=== PATIENT | male | born 1965 | race Caucasian/White ===

== ENCOUNTER 2024-05-27 17:21 | Inpatient (IN) | payer SELFPAY ==
[2024-05-27] VITALS (20 sets, daily range): BP systolic 101–196; BP diastolic 67–99; PULSE 74–109; RESP 12–23; TEMP 36.7–36.8; O2SAT 95–99; BMI 33.5
--- NOTE | ~2024-05-27 | XR_ITS ---
EXAMINATION: XR chest 1V portable Exam Date/Time: 05/27/2024 20:45 CDT HISTORY: chest pain Comparison: 04/21/2012. RESULT: Lines, tubes, and devices: None. Lungs and pleura: Clear. Cardiomediastinal silhouette: Stable. Other: No acute osseous or upper abdominal finding. IMPRESSION: No acute cardiopulmonary process. Reviewed, dictated and finalized at location K.
--- NOTE | 2024-05-27 17:22 | ECG_ITS ---
Test Date: 2024-05-27 17:29:51 Measurements Intervals [place] Rate: 107 P: 34 DC: 142 QRS: -5 QRSD: 79 T: 56 QT: 311 QTc: 416 Interpretive Statements SINUS TACHYCARDIA MARKED ST ELEVATION, CONSIDER ANTERIOR INJURY [MARKED ST ELEVATION W/O NORMALLY INFLECTED T WAVE IN V2-V5] ACUTE [place] No previous ECG available for comparison Electronically Signed On 05-27-2024 21:08:00 CDT by Lauren Paez M.D.
--- NOTE | 2024-05-27 17:43 | ECG_ITS ---
Test Date: 2024-05-27 17:45:25 Measurements Intervals [place] Rate: 107 P: 36 [place]: 142 QRS: -9 QRSD: 72 T: 41 QT: 306 QTc: 409 Interpretive Statements SINUS TACHYCARDIA LEFT VENTRICULAR HYPERTROPHY AND ST-T CHANGE [VOLTAGE CRITERIA PLUS ST/T ABNORMALITY] ST ELEVATION ANTERIOR LEADS, ACUTE [place] Electronically Signed On 05-27-2024 21:08:35 CDT by Lauren Paez M.D.
--- NOTE | 2024-05-27 17:45 | PC.NURSE ---
25mg PO metoprolol given verbal order 5000units Heparin given verbal order 4mg zofran given per verbal order from Dr Davidson
--- NOTE | 2024-05-27 17:46 | ED.CHESTPAIN ---
HPI - Chest Pain General Chief Complaint: Chest Pain Stated Complaint: left chest pain Time Seen by Provider: 05/27/24 17:32 Source: patient and RN notes reviewed Mode of arrival: ambulatory Limitations: no limitations History of Present Illness HPI narrative: This is a 58 year old male with strong family history of heart disease who presents for evaluation of left chest pain . He states his pain start around 11 am today. He states his pain has been constant. His pain is located to left anterior chest and radiates to left back and axilla. He reports mild nausea. He is unsure if pain is muscular because shlomo abarca was recently moving boxes. He took 2 full strength aspirin around 3 pm today. He rates his pain as 4/10. Denies history of heart disease. He does not go to doctor regularly. MD complaint: chest pain Onset (ago): hour(s) (5) Timing of current episode: constant Related Data Home Medications Medication Instructions Recorded Confirmed loratadine 10 mg tablet (Claritin) 10 mg PO DAILY 05/27/24 05/27/24 Allergies Allergy/AdvReac Type Severity Reaction Status Date / Time No Known Allergies Allergy Verified 05/27/24 17:23 Review of Systems Constitutional: Constitutional: Denies weakness Cardiovascular: Cardiovascular: Reports chest pain, Denies syncope, Denies rapid heart rate, Denies irregular heart rhythm, Denies leg edema, Reports radiating jaw, neck or arm pain and Denies dyspnea Respiratory: Respiratory: Denies chest congestion, Denies hemoptysis, Denies excessive phlegm production and Denies dyspnea Gastrointestinal: Gastrointestinal: Denies abdominal pain, Denies hematochezia, Denies diarrhea and Denies vomiting Genitourinary: Genitourinary: Denies hematuria, Denies dysuria, Denies penile discharge and Denies testicular pain Musculoskeletal: Musculoskeletal: Denies joint swelling, Denies loss of height and Denies muscle weakness Neurologic: Denies syncope, Denies focal weakness and Denies weakness [facility] Past Medical History Medical History (Updated 05/27/24 @ 22:01 by Hallie Davidson MD) History of ST elevation myocardial infarction (STEMI) (05/2024) Family History Family History (Updated 05/27/24 @ 20:41 by Mayuri Hameed RN) Father Acute myocardial infarction Lung cancer Mother Diabetes mellitus Heart abnormality Social History Social History Smoking status: Never smoker Second hand tobacco smoke exposure: Yes Alcohol intake: never Substance use: never Do You Feel Safe in your Home?: Yes Lack of Transportation: No Lack of Food: Never True Current Housing: I Have Housing Concerned About Future Housing: No Difficulty Paying Gas/Electric Bills: No Difficulty Paying for Meds: No 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ion: Bachelor's Degree Difficulty w/ Childcare or Family Care: No Spiritual care concerns: No Exam Const: General: no acute distress and alert Nutritional Appearance: well nourished Orientation/consciousness: patient oriented x3 Eyes: EOM: EOMs intact bilaterally Chest: Chest palpation & inspection: normal inspection of the chest Resp: Effort & Inspection: normal respiratory effort Auscultation: clear to auscultation bilaterally Cardio: Rate: tachycardic Rhythm: regular rhythm GI: GI Palp: Yes Soft to palpation, No Tenderness to palpation present (GI), No Guarding due to palpation present (GI), No Rigid due to palpation, No Hernia present, No Palpable mass present and No Rebound tenderness present Skin: General skin exam: normal color Neuro: General: patient oriented x3 and moves all extremities Cranial nerves: Yes Nystagmus not present Speech: normal speech Extrem: General: normal to inspection Psych: Mental Status: mental status grossly normal Affect: normal affect Attitude: cooperative Course Reevaluation(s) Reevaluation #1: Patient has at bedside. I have discuss
[2024-05-27 17:48] LABS: Basophils Percent Auto 0.2 % (0.2-1.2); Eosinophils Absolute Auto 0.1 K/mm3 (0-0.3); Hematocrit 44.4 % (42.0-52.0); Hemoglobin 15.2 g/dL (14.0-18.0); Immature Granulocyte Absolute 0.02 K/mm3 (0.00-0.031); Immature Granulocyte Percent A 0.2 % (0-0.5); Lymphocytes Absolute Auto 2.14 K/mm3 (0.9-3.2); Mean Corpuscular HGB Conc 34.2 g/dl (32-36); Mean Corpuscular Hemoglobin 30.3 pg (26-34); Mean Corpuscular Volume 88.6 fl (80-100); Mean Platelet Volume 9.2 fl (7.4-10.4); Monocytes Absolute Auto 0.5 K/mm3 (0.1-0.6); Neutrophils Absolute Auto 6.2 K/mm3 (1.3-6.7); Neutrophils Percent Auto 69.6 % (45.5-73.1); Platelet Count Result 415 k/mm3 (150-375); Red Blood Count 5.01 M/mm3 (4.6-6.20); Red Cell Distribution Width 12.9 % (11.5-14.5); White Blood Count 8.9 K/mm3 (4.5-10.0)
--- NOTE | 2024-05-27 17:52 | PC.NURSE ---
1in of nitro paste placed on patient left chest per verbal order from Dr Davidson
[2024-05-27 17:59] LABS: INR 0.9; Prothrombin Time 12.9 Seconds (11.1-14.7)
[2024-05-27 18:00] LABS: Anion Gap 12 mmol/L (4-12); Blood Urea Nitrogen 16 mg/dL (9-20); Carbon Dioxide 28 mmol/L (22-30); Chloride 96 mmol/L (98-107); Estimated CRCL calculation 113 ml/min; Estimated Glomerular Filt Rate > 60; Partial Thromboplastin Time 24.5 Seconds (22.3-36.8); Potassium 4.4 mmol/L (3.4-5.0); Sodium 136 mmol/L (137-145)
[2024-05-27 18:01] LABS: Alanine Aminotransferase 45 U/L (6-50); Albumin Level 4.9 g/dL (3.5-5.1); Alkaline Phosphatase 61 U/L (38-126); Aspartate Amino Transferase 55 U/L (17-59); Bilirubin,Total 0.7 mg/dL (0.2-1.3); Glucose 321 mg/dL (65-110); Lipase 44 U/L (23-300)
--- NOTE | 2024-05-27 18:07 | PC.NURSE ---
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
[2024-05-27 18:13] LABS: Troponin I 0.252 ng/mL (0.000-0.034)
--- NOTE | 2024-05-27 18:17 | PM.IMHP ---
H&P: HPI History of Present Illness Date/Time: Date of eczqall44/06/24 18:17 Chief Complaint: chest pain Narrative: 58-year-old male no past history does not take any medicine at home started at 11 having left chest pain that is intermittent radiating to the left arm and upper back. Denies shortness of breath dizziness or syncope. Does not smoke or drink alcohol. Admits to strong family history of CAD. EKG shows anterior STEMI. Review of Systems Review of Systems: All systems reviewed & are unremarkable except as noted in HPI and below Constitutional: Constitutional: Denies chills, Denies fatigue, Denies fever(s), Denies headache(s) and Denies snoring Eyes: Eyes: Denies eye discharge and Denies loss of vision ENT: Denies dizziness, Denies headache(s), Denies nasal discharge and Denies sore throat Cardiovascular: Cardiovascular: Reports as per HPI, Reports chest pain, Denies syncope, Denies rapid heart rate, Denies leg edema, Denies dyspnea, Denies dyspnea on exertion, Denies orthopnea and Denies paroxysmal nocturnal dyspnea Respiratory: Respiratory: Denies chest congestion, Denies cough, Denies dyspnea, Denies dyspnea on exertion, Denies snoring and Denies wheezing Gastrointestinal: Gastrointestinal: Denies abdominal pain, Denies diarrhea, Denies nausea and Denies vomiting Genitourinary: Genitourinary: Denies hematuria, Denies dysuria, Denies flank pain and Denies urinary frequency Musculoskeletal: Musculoskeletal: Denies myalgias, Denies arthralgias and Denies joint swelling Neurologic: Denies Abnormal speech present, Denies dizziness, Denies syncope, Denies headache(s), Denies focal weakness and Denies loss of vision Psychiatric: Psychiatric: Denies anxiety and Denies depression Endocrine: Endocrine: Denies cold intolerance, Denies fatigue and Denies heat intolerance Hematologic/Lymphatic: Hematologic/Lymphatic: Denies easy bleeding and Denies easy bruising Allergic/Immunologic: Allergic/Immunologic: Denies urticaria and Denies wheezing PMFSH Family History Family History Father Acute myocardial infarction Lung cancer Mother Diabetes mellitus Social History Social History Smoking status: Never smoker Meds Home Medications and Allergies Home Medications Medication Instructions Recorded Confirmed Type No Home Medications 10/13/22 10/19/22 History Allergies Allergy/AdvReac Type Severity Reaction Status Date / Time No Known Allergies Allergy Verified 05/27/24 17:23 Vital Signs Vital Signs - 24 hr 05/27/24 17:23 05/27/24 17:46 05/27/24 17:50 Temperature 36.7 C Pulse Rate 104 H 109 H Respiratory Rate 18 20 Blood Pressure 196/99 H 171/99 H Pulse Oximetry 99 97 99 Oxygen Delivery Room Air Exam Const: General: cooperative, healthy appearing, comfortable, no acute distress, well developed and well nourished Nutritional Appearance: well nourished Orientation/consciousness: patient oriented x3 HENMT: Head: normal to inspection, normocephalic and atraumatic Ears: hearing grossly normal bilaterally and external ears normal Face/Nose/Sinus: Normal external nose present, Normal nares present, normal facial exam and No erythema Face and sinus: normal facial exam and no erythema Mouth: Yes moist mucous membranes and No lip abnormal Throat: uvula midline Eyes: General: appearance normal, both eyes and all related structures Eyelids: eyelids normal Sclera: sclerae normal Neck: Neck: normal visual inspection and full ROM Thyroid: thyroid normal Carotids: no bruits Lymphatic: lymphedema not noted Chest: Chest palpation & inspection: normal inspection of the chest and normal palpation of entire chest wall Resp: Effort & Inspection: normal respiratory effort and not labored Auscultation: clear to auscultation bilaterally, no crackles, no rales and no wheezes Cardio:
--- NOTE | 2024-05-27 18:19 | WPDMODSED ---
Moderate Sedation Note-Pt Data Patient Data Diagnosis: STEMI Present Complaint: chest pain Procedure to be performed/Plan: coronary angiogram with stenting Allergies Allergy/AdvReac Type Severity Reaction Status Date / Time No Known Allergies Allergy Verified 05/27/24 17:23 Home Medications Medication Instructions Recorded Confirmed Type No Home Medications 10/13/22 10/19/22 History Sedation/Anesthesia: No previous sedation/anesthesia problems (including family history). PENDING SALE TO [facility] Family History Family History Father Acute myocardial infarction Lung cancer Mother Diabetes mellitus Social History Social History Smoking status: Never smoker Mod Sed Physical Exam Physical Exam Pre Procedural Exam: Normal: Appearance, Eyes, Ears, Nose, Neck, Throat, Airway, Lungs, Heart Size, Heart Rate, Heart Rhythm, Neuro Exam, Abdomen, Liver, Kidneys, Spleen, Breasts, Genitalia, Extremities and Skin Hours since solid foods: 8 Hours since liquid intake: 8 Mallampati Classification: class 1 Internal Medicine - PN: Obj Da Vital Signs Vital Signs: Vital Signs - 24 hr 05/27/24 17:23 05/27/24 17:46 05/27/24 17:50 Temperature 36.7 C Pulse Rate 104 H 109 H Respiratory Rate 18 20 Blood Pressure 196/99 H 171/99 H Pulse Oximetry 99 97 99 Oxygen Delivery Room Air Labs 05/27/24 17:42 05/27/24 17:42 Labs: Laboratory Results - last 24 hr 05/27/24 17:42 WBC 8.9 RBC 5.01 Hgb 15.2 Hct 44.4 MCV 88.6 MCH 30.3 MCHC 34.2 RDW 12.9 Plt Count 415 H MPV 9.2 Immature Gran % (Auto) 0.2 Neut % (Auto) 69.6 Lymph % (Auto) 24.0 [place] % (Auto) 5.0 Eos % (Auto) 1.0 Baso % (Auto) 0.2 Lymph # (Auto) 2.14 [place] # (Auto) 0.5 Eos # (Auto) 0.1 Baso # (Auto) 0.0 Abs Immat Gran (auto) 0.02 Absolute Neuts (auto) 6.2 Absolute Nucleated RBC 0.000 Nucleated RBC % 0.0 PT 12.9 INR 0.9 APTT 24.5 Sodium 136 L Potassium 4.4 Chloride 96 L Carbon Dioxide 28 Anion Gap 12 BUN 16 Creatinine 0.70 Estim Creat Clear Calc 113 Estimated GFR > 60 Glucose 321 H Calcium 10.0 Total Bilirubin 0.7 AST 55 ALT 45 Alkaline Phosphatase 61 Troponin I 0.252 H* Total Protein 9.0 H Albumin 4.9 Lipase 44 ASA Classification/Sedation ASA Classification/Sedation ASA Class: I Emergent: No Risks: Risks, benefits and alternatives explained and patient/family accepted plan for sedation. Patient re-evaluated immediately prior to sedation.
--- NOTE | 2024-05-27 18:19 | WPDCARDPROC ---
Cardiac Cath Procedure Note Date of procedure:: 05/27/24 Performing physician:: Lauren Paez MD Indication:: anterior STEMI Brief clinical history:: 58-year-old male no past history does not take any medicine at home started at 11 having left chest pain that is intermittent radiating to the left arm and upper back. Denies shortness of breath dizziness or syncope. Does not smoke or drink alcohol. Admits to strong family history of CAD. EKG shows anterior STEMI. Procedure Procedure performed:: 1-Moderate sedation that started at 6:25 p.m.and ended at 7:22 p.m. total duration 57 minutes using 2mg of Versed and 50mcg fentanyl. The registered nurse was penny kaba 2-Selective left and right coronary angiogram. 3-Left heart catheterization with measurement of LVEDP and measurement of gradient across aortic valve. 4-Right common femoral arterial angiogram. 5- intravascular ultrasound of the LAD. 6- Deployment of a drug-eluting stent cameron 4 x 34 covering proximal LAD. Sedation/Medication given:: Moderate sedation. Access site:: Right common femoral artery. Estimated blood loss:: 10cc Procedure note:: After informed consent patient was brought in to [facility] with the was draped and prepped in usual manner. Moderate sedation was given and the right groin was infiltrated using 1% lidocaine. 6 Hungarian sheath was obtained using micropuncture needle and the modified Seldinger technique. Selective left coronary angiogram was done using CLS 3.5 guide catheter with the tip of the catheter placed in the left main coronary artery. after that coronary luge wire was advanced across the lesion. Balloon angioplasty was done using 3 x 20 balloon under nominal pressure for 10 seconds. Intravascular ultrasound was done. After that a balloon 3.5 x 20 was used under normal pressure for 20 seconds. Then we advanced cameron 4 x 30 turned out to be short therefore we took longer stent cameron 4 x 34 and deployed at covering proximal LAD under normal pressure for 33 seconds. Post dilatation using noncompliant balloon 4 x 12. distal inflation under nominal pressure for 20 seconds and mid and proximal inflation under 16 atmospheres for 20 seconds each time. Selective right coronary angiogram was done using JR4 catheter with the tip of the catheter placed to the right coronary artery. After that 5 Hungarian pigtail catheter was advanced across the aortic valve into the left ventricle with measurement of LVEDP and measurement of gradient across aortic valve. Right common femoral arterial angiogram was done. Findings:: 1- left coronary artery is a large artery that divides into large LAD, Small left circumflex artery and large ramus. Main has minimal irregularities. 2- left anterior descending artery is a large artery And totally occluded at the junction of the proximal to mid segment. CHARLEEN flow was 0 before intervention and 3 intervention. 3- leftcircumflex artery is Small artery With minimal irregularities. 4- ramus intermedius is a large artery with minimal irregularities. 4- right coronary artery is Large and dominant with minimal irregularities . 5- LVEDP was 15 mm Hg and no gradient across aortic valve. 6- opening arterial pressure was 165/93 and closing pressure was 135/75 7- right femoral artery angiogram shows no significant disease in the right common femoral artery. 8- intravascular ultrasound shows the diameter was 4 mm. Assessment and Plan Assessment and plan (1) STEMI (ST elevation myocardial infarction): Code(s): I21.3 - ST elevation (STEMI) myocardial infarction of unspecified site Status: Acute Plan - Continue aspirin and Brilinta. - obtain echocardiogram. - check lipid panel and hemoglobin A1c. - high-intensity statin
--- NOTE | 2024-05-27 19:38 | ECG_ITS ---
Test Date: 2024-05-27 20:09:27 Measurements Intervals [place] Rate: 80 P: 45 [place]: 150 QRS: 7 QRSD: 94 T: 113 QT: 376 QTc: 434 Interpretive Statements SINUS RHYTHM WITH MARKED SINUS ARRHYTHMIA ANTEROSEPTAL MYOCARDIAL INFARCTION [40+ ms Q WAVE IN V1-V4], PROBABLY RECENT ACUTE NE Compared to ECG 05/27/2024 17:45:25 Sinus tachycardia no longer present Left ventricular hypertrophy no longer present ST (T wave) deviation IMPROVED Electronically Signed On 05-27-2024 21:14:40 CDT by Lauren Paez M.D.
[2024-05-27] MEDS: SODIUM CHLORIDE 0.9% IV 1,000 ML 100 ML IV CONT (20:18)
--- NOTE | 2024-05-27 20:21 | ADMGEN ---
This patient, Yuri Cavanaugh, was admitted to Intensive Care Unit-5. Patient/family oriented to hospital policies and general routines including ID bracelet, bed and alarms, visiting hours, pain management, procedures, bathroom and other care routines, personal items, smoking policy, room service/diet, and visiting hours. This RN recieved report from Ginna LIANG at 1936 Information on how to activate the Rapid Response Team has been discussed. Patient/Family are encouraged to report perceived risks to care and to ask questions if they do not understand what they are told or what they should do.
[2024-05-27 21:19] LABS: Hemoglobin A1C 10.2 % (<5.7)
[2024-05-27 21:22] LABS: Cholesterol 226 mg/dL (0-200); HDL Direct 36 mg/dL; Partial Thromboplastin Time 47.3 Seconds (22.3-36.8); Triglycerides 348 mg/dL (<150)
[2024-05-27 21:33] LABS: LDL Cholesterol Direct 111 mg/dL
--- NOTE | 2024-05-27 21:37 | PC.NURSE ---
Patient given heparin bolus in ED. Patient PTT 47.3 at 2106. Per protocol, will not pull sheath at this time. Repeat PTT ordered for 2206.
[2024-05-27 22:25] LABS: MRSA (PCR) NOT DETECTED (NOT DETECTE)
[2024-05-27 22:41] LABS: Partial Thromboplastin Time 38.4 Seconds (22.3-36.8)
[2024-05-28] VITALS (25 sets, daily range): BP systolic 111–131; BP diastolic 63–86; PULSE 79–105; RESP 12–21; TEMP 36.7–37.1; O2SAT 94–99; BMI 33.2
[2024-05-28] MEDS: MORPHINE SULFATE (*CRX) 2 MG/ML INJ IV PUSH (04:22)
[2024-05-28 04:54] LABS: Basophils Percent Auto 0.3 % (0.2-1.2); Eosinophils Absolute Auto 0.1 K/mm3 (0-0.3); Eosinophils Percent Auto 0.5 % (0-4.4); Hematocrit 39.1 % (42.0-52.0); Hemoglobin 13.2 g/dL (14.0-18.0); Immature Granulocyte Absolute 0.04 K/mm3 (0.00-0.031); Immature Granulocyte Percent A 0.3 % (0-0.5); Lymphocytes Absolute Auto 2.36 K/mm3 (0.9-3.2); Lymphocytes Percent Auto 18.9 % (18.3-44.2); Mean Corpuscular HGB Conc 33.8 g/dl (32-36); Mean Corpuscular Hemoglobin 30.1 pg (26-34); Mean Corpuscular Volume 89.1 fl (80-100); Mean Platelet Volume 9.2 fl (7.4-10.4); Monocytes Absolute Auto 0.8 K/mm3 (0.1-0.6); Monocytes Percent Auto 6.6 % (2.6-8.5); Neutrophils Absolute Auto 9.2 K/mm3 (1.3-6.7); Neutrophils Percent Auto 73.4 % (45.5-73.1); Platelet Count Result 347 k/mm3 (150-375); Red Blood Count 4.39 M/mm3 (4.6-6.20); Red Cell Distribution Width 12.9 % (11.5-14.5); White Blood Count 12.5 K/mm3 (4.5-10.0)
[2024-05-28 05:08] LABS: Anion Gap 7 mmol/L (4-12); Blood Urea Nitrogen 15 mg/dL (9-20); Calcium 9.3 mg/dL (8.4-10.2); Carbon Dioxide 26 mmol/L (22-30); Chloride 101 mmol/L (98-107); Estimated CRCL calculation 154 ml/min; Estimated Glomerular Filt Rate > 60; Glucose 206 mg/dL (65-110); Potassium 4.3 mmol/L (3.4-5.0); Sodium 134 mmol/L (137-145)
[2024-05-28 08:18] LABS: Glucose Point of Care 245 mg/dl (65-105)
[2024-05-28] MEDS: ASPIRIN 81 MG ENTERIC TABLET PO (08:18)
[2024-05-28] MEDS: TICAGRELOR 90 MG TABLET PO ×2 (08:18→20:54)
[2024-05-28] MEDS: ATORVASTATIN 40 MG TABLET PO (08:19)
[2024-05-28] MEDS: carvediloL 3.125 MG TABLET PO ×2 (08:19→20:54)
[2024-05-28] MEDS: ACETAMINOPHEN 325 MG TABLET 650 MG PO (08:19)
[2024-05-28] MEDS: LOSARTAN POTASSIUM 25 MG TABLET PO (08:19)
[2024-05-28] MEDS: INSULIN ASPART (*BKC) 100 UNITS/ML SUB-Q ×4 (08:20→21:03)
--- NOTE | 2024-05-28 08:31 | WPDCNINT ---
Assessment and Plan Assessment and plan (1) STEMI (ST elevation myocardial infarction): Code(s): I21.3 - ST elevation (STEMI) myocardial infarction of unspecified site Status: Acute Assessment and Plan: Continue STEMI status post stent placement in LAD Check echocardiogram Continue aspirin Brilinta Lipitor Coreg losartan Telemetry monitoring (2) Diabetes mellitus: Code(s): E11.9 - Type 2 diabetes mellitus without complications Status: Acute Assessment and Plan: Patient has elevated blood sugar levels and HbA1c is 10.2 suggestive of diabetes Patient was informed of these results Consult clinical educator and dietitian Start sliding scale insulin Cardiology plans to consult internal medicine for recommendation on management as an outpatient for diabetes (3) Essential hypertension: Code(s): I10 - Essential (primary) hypertension Status: Acute Assessment and Plan: Patient has been started on Coreg and losartan (4) Hyperlipidemia: Code(s): E78.5 - Hyperlipidemia, unspecified Status: Acute Assessment and Plan: Patient has been started on Lipitor Plan DVT prophylaxis -SCDs. I anticipate patient will ambulate today Nutrition -cardiac and diabetic diet Code Status - Full Code Transfer out of ICU today Software Quality Specialist Consult Note Consult date: 05/28/24 Reason for consult: STEMI HPI: Yuri Cavanaugh is a 58 year old male be with past medical history of sinus issues who has not seen a physician in 10 years presented to ER yesterday with chief complaint of pain on the left side of the chest. Pain started after eating lunch around 11:00 a.m.. Pain was constant sharp and radiated to his back pain was 10 out 10. No further aggravating or relieving factors. Initially thought he had some muscular pain but when it did not improved he got concerned and came to the hospital. Pain was associated with nausea and some shortness of breath. No vomiting dizziness lightheadedness or palpitations. All other systems were reviewed and were negative In ER patient's diagnosis STEMI and Cardiology consulted. Patient underwent PCI and a stent was placed in LAD. Patient was admitted to ICU for further evaluation management. Additional workup showed elevated blood pressure, elevated HbA1c and lipid level Patient this morning states he feels much better and he complains of E in left side of anterior chest which she rates at 2/10 but states it is different than the pain he presented with which has resolved. Pain is not necessary movement coughing of breathing. Denies any nausea vomiting shortness of breath lightheadedness dizziness palpitations. All other systems were reviewed and were negative. Review of Systems Review of Systems: All systems reviewed & are unremarkable except as noted in HPI and below (HPI) [facility] Past Medical History Medical History History of ST elevation myocardial infarction (STEMI) (05/2024) Family History Family History Father Acute myocardial infarction Lung cancer Mother Diabetes mellitus Heart abnormality Social History Social History Smoking status: Never smoker Second hand tobacco smoke exposure: Yes Alcohol intake: never Substance use: never Do You Feel Safe in your Home?: Yes Lack of Transportation: No Lack of Food: Never True Current Housing: I Have Housing Concerned About Future Housing: No Difficulty Paying Gas/Electric Bills: No Difficulty Paying for Meds: No 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ion: Bachelor's Degree Difficulty w/ Childcare or Family Care: No Spiritual care concerns: No Meds Home Medications and Allergies Home Medications Medication Instructions Recorded Confirmed Type loratadine 10 mg tablet (Claritin) 10 mg PO DAILY 05/27/
--- NOTE | 2024-05-28 08:39 | PM.PNCARD ---
Progress Note: A&P Assessment and Plan (1) STEMI (ST elevation myocardial infarction): Code(s): I21.3 - ST elevation (STEMI) myocardial infarction of unspecified site Status: Acute (2) Presence of stent in LAD coronary artery: Onset Date: 05/2024 Code(s): Z95.5 - Presence of coronary angioplasty implant and graft Status: Acute Plan 58-year-old man presenting for the 1st time with coronary artery disease with acute anterior ST-elevation WI. 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 His presentation was somewhat delayed therefore he will likely have a significant infarction. He also has newly diagnosed diabetes. Patient does not have regular medical attention by his PCP. Dual anti-platelet therapy, statin ARB and beta-pedro have been started appropriately and will be continued he. He can moved IMU today. Nas Harvey MD [facility] Subjective Date/time seen: Date of service: 05/28/24 08:39 Interval history: Follow-up visit in this 58-year-old man with: Coronary artery disease presenting yesterday with acute anterior ST-elevation WI. the patient feels well this morning mild residual left-sided chest discomfort much more comfortable than yesterday. Exam Const: General: comfortable and no acute distress HENMT: Mouth: Yes moist mucous membranes Eyes: Sclera: sclerae normal Neck: Neck: supple and no JVD Resp: Effort & Inspection: normal respiratory effort Auscultation: clear to auscultation bilaterally Cardio: Rate: regular rate Rhythm: regular rhythm Other: No murmur no gallop GI: GI Palp: Yes Soft to palpation Auscultation: normal bowel sounds Skin: General skin exam: normal color Neuro: Other: Alert and oriented x3 Extrem: General: normal to inspection Objective Data Vital Signs Vital Signs: Vital Signs - 24 hr 05/27/24 17:23 05/27/24 17:46 05/27/24 17:50 Temperature 36.7 C Pulse Rate 104 H 109 H Respiratory Rate 18 20 Blood Pressure 196/99 H 171/99 H Pulse Oximetry 99 97 99 Oxygen Delivery Room Air 05/27/24 20:00 05/27/24 20:46 05/27/24 21:01 Temperature 36.8 C Pulse Rate 78 91 89 Respiratory Rate 19 12 21 H Blood Pressure 101/79 144/81 H 144/81 H Pulse Oximetry 96 96 95 Oxygen Delivery 05/27/24 21:16 05/27/24 21:31 05/27/24 21:46 Temperature Pulse Rate 88 88 81 Respiratory Rate 16 19 20 Blood Pressure 120/81 133/85 133/78 Pulse Oximetry 96 97 96 Oxygen Delivery 05/27/24 20:00 05/27/24 20:00 05/27/24 22:16 Temperature Pulse Rate 74 91 Respiratory Rate 18 Blood Pressure 127/67 Pulse Oximetry 96 Oxygen Delivery Room Air 05/27/24 23:05 05/27/24 23:16 05/27/24 23:21 Temperature Pulse Rate 88 80 82 Respiratory Rate 23 H 20 20 Blood Pressure 130/83 126/78 115/85 Pulse Oximetry 99 96 97 Oxygen Delivery 05/27/24 23:25 05/27/24 23:31 05/27/24 23:36 Temperature Pulse Rate 87 83 83 Respiratory Rate 20 17 18 Blood Pressure 130/82 125/77 121/85 Pulse Oximetry 97 97 97 Oxygen Delivery 05/27/24 22:00 05/28/24 00:00 05/27/24 22:46 Temperature Pulse Rate 88 89 89 Respiratory Rate 17 Blood Pressure 132/78 Pulse Oximetry 97 Oxygen Delivery 05/27/24 23:46 05/28/24 00:00 05/27/24 23:50 Temperature 36.8 C Pulse Rate 86 84 86 Respiratory Rate 19 17 19 Blood Pressure 123/78 127/80 123/78 Pulse Oximetry 97 96 97 Oxygen Delivery 05/28/24 00:20 05/28/24 00:00 05/28/24 01:00 Temperature Pulse Rate 85 85 Respiratory Rate 21 H 18 Blood Pressure 118/77 127/82 Pulse Oximetry 96 96 Oxygen Delivery Room Air 05/28/24 01:20 05/28/24 02:20 05/28/24 02:00 Temperature Pulse Rate 84 85 84 Respiratory Rate 18 16 Blood Pressure 131/78 128/82 Pulse Oximetry 96 96 Oxygen Delivery 05/28/24 02:00 05/28/24 03:00 05/28/24 03:20 Temperature
[2024-05-28 11:45] LABS: Glucose Point of Care 202 mg/dl (65-105)
[2024-05-28 16:48] LABS: Glucose Point of Care 183 mg/dl (65-105)
[2024-05-28 20:50] LABS: Glucose Point of Care 401 mg/dl (65-105)
--- NOTE | 2024-05-28 22:45 | PC.NURSE ---
Report received from AZUL Messina & patient transported to room via AZUL Ruiz. Pt placed into room 209 & oriented to the unit.
[2024-05-29] VITALS (9 sets, daily range): BP systolic 119–125; BP diastolic 59–69; PULSE 79–95; RESP 12–18; TEMP 36.8; O2SAT 96–98
[2024-05-29 05:34] LABS: Hematocrit 37.8 % (42.0-52.0); Hemoglobin 12.9 g/dL (14.0-18.0); Mean Corpuscular HGB Conc 34.1 g/dl (32-36); Mean Corpuscular Hemoglobin 30.4 pg (26-34); Mean Corpuscular Volume 89.2 fl (80-100); Mean Platelet Volume 9.4 fl (7.4-10.4); Platelet Count Result 317 k/mm3 (150-375); Red Blood Count 4.24 M/mm3 (4.6-6.20); Red Cell Distribution Width 12.8 % (11.5-14.5)
[2024-05-29 05:44] LABS: Alanine Aminotransferase 60 U/L (6-50); Alkaline Phosphatase 49 U/L (38-126); Anion Gap 7 mmol/L (4-12); Aspartate Amino Transferase 144 U/L (17-59); Bilirubin,Total 1.4 mg/dL (0.2-1.3); Blood Urea Nitrogen 18 mg/dL (9-20); Calcium 9.1 mg/dL (8.4-10.2); Carbon Dioxide 27 mmol/L (22-30); Chloride 100 mmol/L (98-107); Estimated CRCL calculation 115 ml/min; Estimated Glomerular Filt Rate > 60; Glucose 198 mg/dL (65-110); Magnesium 1.7 mg/dL (1.6-2.3); Potassium 3.9 mmol/L (3.4-5.0); Sodium 134 mmol/L (137-145)
[2024-05-29 09:02] LABS: Glucose Point of Care 228 mg/dl (65-105)
[2024-05-29] MEDS: INSULIN ASPART (*BKC) 100 UNITS/ML SUB-Q (09:51)
[2024-05-29] MEDS: ATORVASTATIN 40 MG TABLET PO (09:52)
[2024-05-29] MEDS: carvediloL 6.25 MG TABLET PO (09:52)
[2024-05-29] MEDS: ASPIRIN 81 MG ENTERIC TABLET PO (09:53)
[2024-05-29] MEDS: LOSARTAN POTASSIUM 25 MG TABLET PO (09:53)
--- NOTE | 2024-05-29 10:22 | PM.DS ---
DS: Admitting Diagnosis Discharge Date 05/29/2024 Admitting Diagnosis anterior wall ST-elevation GA DS: Discharge Diagnosis Discharge Diagnosis (1) STEMI (ST elevation myocardial infarction): Code(s): I21.3 - ST elevation (STEMI) myocardial infarction of unspecified site Status: Acute (2) Presence of stent in LAD coronary artery: Onset Date: 05/2024 Code(s): Z95.5 - Presence of coronary angioplasty implant and graft Status: Acute DS: Summary Hospital Course Reason for hospitalization: acute anterior ST-elevation GA Hospital Course: this is a 58-year-old man who presented to the hospital with chest pain on the day of admission to the emergency room. Symptoms began approximately 10-12 hours prior to presentation. He was found to have acute anterior ST-elevation GA at presentation and was brought emergently to the cardiac labor employment associate by Dr. Paez. the patient underwent emergency successful PCI with angioplasty and stenting of the proximal LAD. Details of this are available in the separately dictated labor employment associate report. His recovery following his acute ST-elevation GA and revascularization was uneventful. He did have a significant troponin rise as expected given his late presentation otherwise he had no complications of his infarction and was ambulating today asymptomatic and appears to be a good candidate for discharge. His discharge medications are as detailed below and follow-up will be scheduled in the office in 2-3 weeks he has been referred to phase 2 cardiac rehab and has not been cleared to return to work until he is seen in follow-up Status at Discharge Functional status at discharge: independent ambulation Overall status at discharge: patient is progressing back to baseline Time Spent with Patient Time attestation: Total time spent providing and/or coordinating discharge services: Time spent: Greater than 30 minutes Exam Const: General: comfortable and no acute distress HENMT: Mouth: Yes moist mucous membranes Eyes: Sclera: sclerae normal Neck: Neck: supple and no JVD Resp: Effort & Inspection: normal respiratory effort Auscultation: clear to auscultation bilaterally Cardio: Rate: regular rate Rhythm: regular rhythm Other: no murmur no gallop GI: GI Palp: Yes Soft to palpation Auscultation: normal bowel sounds Skin: General skin exam: normal color Neuro: Other: alert and oriented x3 Extrem: General: normal to inspection DS: Data Data Completed and Pending Labs on day of discharge: Labs from last 24 hours 1005/29/24 05/28/24 07:34 05:11 20:48 WBC 10.0 RBC 4.24 L Hgb 12.9 L Hct 37.8 L MCV 89.2 MCH 30.4 MCHC 34.1 RDW 12.8 Plt Count 317 MPV 9.4 Sodium 134 L Potassium 3.9 Chloride 100 Carbon Dioxide 27 Anion Gap 7 BUN 18 Creatinine 0.70 Estim Creat Clear Calc 115 Estimated GFR > 60 Glucose 198 H POC Capillary Glucose 228 H 401 H Calcium 9.1 Magnesium 1.7 Total Bilirubin 1.4 H AST 144 H ALT 60 H Alkaline Phosphatase 49 Total Protein 7.0 Albumin 4.0 05/28/24 05/28/24 16:46 11:43 WBC RBC Hgb Hct MCV MCH MCHC RDW Plt Count MPV Sodium Potassium Chloride Carbon Dioxide Anion Gap BUN Creatinine Estim Creat Clear Calc Estimated GFR Glucose POC Capillary Glucose 183 H 202 H Calcium Magnesium Total Bilirubin AST ALT Alkaline Phosphatase Total Protein Albumin Discharge Plan Discharge Attending physician on discharge: Lauren Paez Consulting providers: Donell Oseguera Discharging Clinician: Nas Harvey Patient Disposition: Home, Self-Care Activity: as tolerated Diet: heart healthy Discharge Instructions: [facility]
[2024-05-29] MEDS: CLOPIDOGREL BISULFATE 300 MG TABLET 600 MG PO (10:37)
--- NOTE | 2024-05-29 10:49 | PCCPR ---
Visited patient bed side to explain and discuss Cardiac Rehab. Patient interested. Will follow-up after discharge.
--- NOTE | 2024-05-29 12:27 | PM.IMCN ---
Assessment and Plan Assessment and plan (1) STEMI (ST elevation myocardial infarction): Code(s): I21.3 - ST elevation (STEMI) myocardial infarction of unspecified site Status: Acute Assessment and Plan: Continue STEMI status post stent placement in LAD Continue aspirin Brilinta Lipitor Coreg losartan Telemetry monitoring (2) Diabetes mellitus: Code(s): E11.9 - Type 2 diabetes mellitus without complications Status: Acute Assessment and Plan: Patient has elevated blood sugar levels and HbA1c is 10.2 suggestive of diabetes Patient was informed of these results nurse informatics educator and dietitian consulted Was on sliding scale insulin. Discussed oral regimen with patient metformin and glimepiride will be started at discharge. Patient to follow-up with PCP for adjustment of medications and further titration and monitoring of diabetes Home monitoring with glucometer test strips and lancets ordered (3) Essential hypertension: Code(s): I10 - Essential (primary) hypertension Status: Acute Assessment and Plan: Patient has been started on Coreg and losartan (4) Hyperlipidemia: Code(s): E78.5 - Hyperlipidemia, unspecified Status: Acute Assessment and Plan: Patient has been started on Lipitor Plan DVT prophylaxis -SCDs. Nutrition -cardiac and diabetic diet Code Status - Full Code HPI Date of Consult Consult date: 05/29/24 Requesting Physician: Lauren Paez MD Primary Care Provider: Tam Parker MD Consult Narrative Narrative: Yuri Cavanaugh is a 58 year old male who presented on 05/28/2024 with complaint of left-sided chest pain. Pain started after eating lunch. Was constant and radiated to the back. Initially thought it was muscular pain however did not improve and came to the hospital for treatment. There was associated nausea and shortness of breath. No vomiting dizziness lightheadedness or palpitation. In the ER patient was diagnosed with ST-elevation AR and Cardiology was consulted. He underwent PCI and stent placement in LAD. He was admitted to the ICU for further treatment post catheterization. He is on dual antiplatelet therapy. He was also hypertensive and hyperglycemic. A1c came back at 10.2 indicating type 2 diabetes mellitus. Has been started on sliding scale insulin he has seen clinical unit educator. He is otherwise feeling well and is planned for discharge today. He will see his primary care has follow-up. Discussed options of diabetes treatment with the patient. Blood sugar trend was reviewed. Review of Systems Review of Systems: - CONSTITUTIONAL: Denies weight loss, fever and chills. - HEENT: Denies changes in vision and hearing - RESPIRATORY: Denies SOB and cough. - CV: Denies palpitations and CP. - GI: Denies abdominal pain, nausea, vomiting and diarrhea. - : Denies dysuria and urinary frequency. - MSK: Denies myalgia and joint pain. - SKIN: Denies rash and pruritus. - NEUROLOGICAL: Denies headache and syncope. - PSYCHIATRIC: Denies recent changes in mood. Denies anxiety and depression. [facility] Past Medical History Medical History History of ST elevation myocardial infarction (STEMI) (05/2024) Family History Family History Father Acute myocardial infarction Lung cancer Mother Diabetes mellitus Heart abnormality Social History Social History Smoking status: Never smoker Second hand tobacco smoke exposure: Yes Alcohol intake: never Substance use: never Do You Feel Safe in your Home?: Yes Lack of Transportation: No Lack of Food: Never True Current Housing: I Have Housing Concerned About Future Housing: No Difficulty Paying Gas/Electric Bills: No Difficulty Paying for Meds: No 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
== END 2024-05-29 12:45 | disposition home or self-care (01) | DRG 174 ==
LOC: ANHED 17:57 → ANHICU 18:33 → ANHIMU 05-28 23:19
PROVIDERS: Emergency Medicine; Internal Medicine; Admitting Provider Internal Medicine Cardiovascular Disease; Emergency Provider General Practice; PCP Family Medicine Adolescent Medicine; Visit Provider Specialist
PROC: 4A023N7 Measurement of Cardiac Sampling and Pressure, Left Heart, Percutaneous Approach (ICD-10-PCS; CPT 93452; principal; 2024-05-27 17:50)
PROC: 4A023N7 Measurement of Cardiac Sampling and Pressure, Left Heart, Percutaneous Approach (ICD-10-PCS; 2024-05-27 17:50)
PROC: 4A023N7 Measurement of Cardiac Sampling and Pressure, Left Heart, Percutaneous Approach (ICD-10-PCS; 2024-05-27 17:50)
DX: I21.09 ST elevation (STEMI) myocardial infarction involving other coronary artery of anterior wall (principal); E11.9 Type 2 diabetes mellitus without complications; E78.5 Hyperlipidemia, unspecified; I10 Essential (primary) hypertension
CPT/HCPCS: 36415; 71045; 80048; 80053; 80061; 82948; 83036; 83690; 83735; 84484; 85025; 85027; 85610; 85730; 87641; 92978; 93005; 93458; 99285; A9270; C1725; C1753; C1769; C1874; C1887; C1894; C9606; G0378; G0379; J0583; J1327; J1644; J1815; J2003; J2250; J2270; J2305; J2405; J3010; J7030; J7040

== ENCOUNTER 2024-11-29 15:00 | Outpatient (RCR) | payer OTHER, SELFPAY ==
[2024-09-11 11:43] VITALS: PULSE 75
[2024-10-03 16:02] LABS: Glucose Point of Care 123 mg/dl (65-105)
[2024-10-03 16:02] LABS: Glucose Point of Care 98 mg/dl (65-105)
[2024-10-17 15:10] LABS: Glucose Point of Care 165 mg/dl (65-105)
== END 2024-11-29 16:03 | disposition home or self-care (01) ==
LOC: ANHCPREHAB 15:00
PROVIDERS: PCP Family Medicine Adolescent Medicine; Visit Provider Internal Medicine Cardiovascular Disease
DX: Z95.5 Presence of coronary angioplasty implant and graft (principal)
CPT/HCPCS: 93798

== ENCOUNTER 2025-03-30 00:53 | Emergency (ER) | payer SELFPAY ==
[2025-03-30] VITALS (14 sets, daily range): BP systolic 136–163; BP diastolic 78–94; PULSE 67–88; RESP 14–22; TEMP 36.8; O2SAT 96–100
--- NOTE | ~2025-03-30 | XR_ITS ---
EXAMINATION: XR chest 2V DATE: 03/30/2025 01:40 INDICATION: Chest pain TECHNIQUE: PA and lateral views of the chest were obtained. COMPARISON: Chest radiograph dated 05/27/2024 FINDINGS: Minimal streaky atelectasis at the right costophrenic angle. No other airspace opacities, pulmonary e ruben, pleural effusion or pneumothorax. Heart size is normal. Coronary artery stent. Bifid anterior l eft sixth rib. IMPRESSION: 1. Minimal streaky atelectasis at the right costophrenic angle. No other acute cardiopulmonary diseas e. Reviewed, dictated and finalized at location A. IMPRESSION: 1. Minimal streaky atelectasis at the right costophrenic angle. No other acute cardiopulmonary disease.
--- OUTSIDE RECORDS SUMMARY | 2025-03-30 00:56 | XMS_ITS | Encounter Summary ---
Author Organization [facility] Healthcare Address [address] [place] [address] Care Team Providers Care Sunglass Clip Attacher Name Role Phone Tam Parker MD Primary Care Prov ider Encounter Details Date Type Department Care Team (Late st Contact Info) Description 03/29/2025 Telephone [facility] Medical Group Cardiology [address] [place] [address] Lauren Paez MD [address] [place] [id number] Social History Tobacco Use Types Packs/Day Years Used Date Smoking Tobacco: Never Sex and Gender Information Value Date Recorded Sex Assigned at Not on file 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 * Telephone Encounter - Magda Wolf - 03/29/2025 8:20 AM CDT Refill request for Clopidogrel [place] in [place] documented in this encounter Plan of Treatment Not on file documented as of this encounter Visit Diagnoses Not on filedocumented in this encounter Discontinued Medications Medication Sig Discontinue Reason Start Date End Da te clopidogreL (PLAVIX) 75 mg tablet Take 1 tablet (75 mg total) by mouth every morning Reorder 05/29/2024 03/29/2025 documented as of this encounter Care Teams Sunglass Clip Attacher Relationship Specialty Start Date End Date Tam Parker MD [address] [place] [address] PCP - General 05/22/12 documented as of this encounter
--- OUTSIDE RECORDS SUMMARY | 2025-03-30 00:56 | XMS_ITS | Clinical Summary ---
Author Organization [facility] [place] [address] Address [address] [place] [address] Care Team Providers Care Calibrator Barometers Name Role Phone Tam Parker MD Primary Care Prov ider Allergies No known active allergies Medications aspirin 81 mg enteric coated tablet Take 1 tablet (81 mg total) by mouth every morning 4 Active glimepiride (AMARYL) 2 mg tablet TAKE 1 TABLET BY MOUTH ONCE DAILY WITH MEALS 4 Active metFORMIN (GLUCOPHAGE) 500 mg tablet Take 1 tablet (500 mg total) by mouth 4 Active acetaminophen (TYLENOL) 325 mg tablet Take 2 tablets (650 mg total) by mouth every 6 (six) hours as needed for pain Active carvediloL (COREG) 6.25 mg tablet Take 1 tablet (6.25 mg total) by mouth every 12 (twelve) hours 180 tablet 2 5 Active losartan (COZAAR) 25 mg tablet Take 1 tablet (25 mg total) by mouth daily 90 tablet 2 5 Active atorvastatin (LIPITOR) 40 mg tablet Take 1 tablet (40 mg total) by mouth daily 90 tablet 1 5 Active clopidogreL (PLAVIX) 75 mg tablet Take 1 tablet (75 mg total) by mouth every morning 90 tablet 5 Active atorvastatin (LIPITOR) 40 mg tablet Take 1 tablet (40 mg total) by mouth daily 4 03/04/20 25 Discontinu ed(Reorder ) clopidogreL (PLAVIX) 75 mg tablet Take 1 tablet (75 mg total) by mouth every morning 4 03/29/20 25 Discontinu ed(Reorder ) Active Problems Problem Noted Date Diagnosed Date History of ST elevation myocardial infarction (S HANSA) 10/01/2024 Essential hypertension 10/01/2024 Hyperlipidemia associated with type 2 diabetes andrea cristiancharles 10/01/2024 Encounters Date Type Department Care Team Description 03/29/2025 Telephone [facility] Cardiology [address] [place] [address] Lauren Paez MD 03/04/2025 Telephone [facility] Cardiology [address] [place] [address] Lauren Paez MD 02/25/2025 Telephone [facility] Cardiology [address] [place] [address] Lauren Paez MD from Last 3 Months Medical History Medical History Date Comments Hypertension Hyperlipidemia Diabetes mellitus (HCC) Past heart attack Thyroid disease Family History Medical History Relation Name Comments Liver cancer Brother 1 Stroke Brother 2 Cancer Father Diabetes Mother Relation Name Status Comments Brother 1 Alive Brother 2 Alive Brother 3 Brother 4 Father Mother Alive Social History Tobacco Use Types Packs/Day Years Used Date Smoking Tobacco: Never Tobacco Cessation:Counseling Given: Not Answered Sex and Gender Information Value Date Recorded Sex Assigned at Not on file Legal Sex Male 2:34 AM DYE BLENDER Gender Identity Not on file Sexual Orientation Not on file Obstetrics History Last Filed Vital Signs Vital Sign Reading Time Taken Comments Blood Pressure 118/76 10/01/2024 12:24 PM DYE BLENDER Pulse 81 10/01/2024 12:24 PM DYE BLENDER Temperature - - Respiratory Rate - - Oxygen Saturation 98% 10/01/2024 12:24 PM DYE BLENDER Inhaled Oxygen Concentration - - Weight 96.4 kg (212 lb 9.6 oz) 10/01/2024 12:24 PM DYE BLENDER Height 175.3 cm (5' 9) 10/01/2024 12:24 PM DYE BLENDER Body Mass Index 31.4 10/01/2024 12:24 PM DYE BLENDER Plan of Treatment Health Maintenance Due Date Last Done Comments Albumin Creatinine Ratio, Urine 1963 Colon Cancer Screening-Colonoscopy 1963 Depression Screening 1963 Hemoglobin A1C 1963 Hepatitis C Screening 1963 Prostate Cancer Screening-PSA 1963 eGFR 1963 Dilated Eye Exam 1963 Foot Exam 1963 Hepatitis B Screening 1981 Regular Well Visit/Exam 18-64 1981 Pneumococcal vaccine <65 (1 of 2 - PCV) 1982 Zoster Vaccine (1 of 2) 2013 Covid-19 Vaccine (3 - season) 2024, 02/10/2021 Influenza Vaccine (#1) 2025 Lipid Panel 10/01/2025 10/01/2024 DTaP/Tdap/Td Vaccine (2 - Td or Tdap) 10/13/2032 Procedures Procedure Name Priority Date/Time Associated Diagnosis Comments POCT LIPID PANEL Routine 10/01/2024 12:4 4 PM DYE BLENDER Hyperlipidemia associated with type 2 diabetes mellitus (HCC) from Last 3 Months or Most Recently Relevant to Health Maintenance Results * POCT lipid panel (10/01/2024 12:44 PM DYE BLENDER) Cholesterol, POC 112 mg/dL HDL, POC <15 mg/dL Triglycerides, POC 547 mg/dL LDL Cholesterol POC N/A mg/dL Chol/HDL Ratio, POC N/A Non-HDL Cholesterol, POC N/A mg/dL Cholesterol Total, POC 112 mg/dL Capillary blood 10/01/2024 1 2:44 PM DYE BLENDER us Lauren Paez MD POINT OF CARE TEST O RDERABLES Final Result from Last 3 Months or Most Recently Relevant to Health Maintenance Care Teams Calibrator Barometers Relationship Specialty Start Date End Date Tam Parker MD [address] [place] [address] PCP - General 05/22/12
--- OUTSIDE RECORDS SUMMARY | 2025-03-30 00:56 | XMS_ITS | Encounter Summary ---
Author Organization [facility] Healthcare Address [address] [place] [address] Care Team Providers Care Senior Wind Turbine Technician Name Role Phone Tam Parker MD Primary Care Prov ider Encounter Details Date Type Department Care Team (Late st Contact Info) Description 05/29/2024 Orders Only [facility] [place] Information Management [address] [place] [address] Scanning, Provider Social History Tobacco Use Types Packs/Day Years Used Date Smoking Tobacco: Never Assessed Sex and Gender Information Value Date Recorded Sex Assigned at Not on file 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 Sex Male 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 Gender Identity Not on file Sexual Orientation Not on file documented as of this encounter Plan of Treatment Not on file documented as of this encounter Procedures Procedure Name Priority Date/Time Associated Diagnosis Comments SCAN - RADIOLOGY/IMAGING 05/29/2024 9:28 PM CDT CARDIOLOGY DOCUMENT SCAN 05/29/2024 9:28 PM CDT SCAN - LABS 05/29/2024 documented in this encounter Results * SCAN - RADIOLOGY/IMAGING (05/29/2024 9:28 PM CDT) Anatomical Region Laterality Modality Other us Provider Scanning Final Result * Cardiology Document Scan (05/29/2024 9:28 PM CDT) Anatomical Region Laterality Modality Other us Provider Scanning CV CARDIAC SERVICES PROCEDURES Final Result * SCAN - LABS (05/29/2024) us Provider Scanning Final Result documented in this encounter Visit Diagnoses Not on filedocumented in this encounter Care Teams Senior Wind Turbine Technician Relationship Specialty Start Date End Date Tam Parker MD [address] [place] [address] PCP - General 05/22/12 documented as of this encounter
--- OUTSIDE RECORDS SUMMARY | 2025-03-30 00:56 | XMS_ITS | Encounter Summary ---
Author Organization 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 OF 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 Gender Identity Not on file Sexual Orientation Not on file documented as of this encounter Plan of Treatment Not on file documented as of this encounter Procedures Procedure Name Priority Date/Time Associated Diagnosis Comments SCAN - RADIOLOGY/IMAGING 05/27/2024 documented in this encounter Results * SCAN - RADIOLOGY/IMAGING (05/27/2024) Anatomical Region Laterality Modality Other us Provider Scanning Final Result documented in this encounter Visit Diagnoses Not on filedocumented in this encounter Care Teams Shot Grinder Operator Relationship Specialty Start Date End Date Tam Parker MD [address] [place] [address] PCP - General 05/22/12 documented as of this encounter
--- NOTE | 2025-03-30 00:57 | ECG_ITS ---
Test Date: 2025-03-30 01:14:00 Measurements Intervals Babbitt Rate: 79 P: 38 AR: 149 QRS: -10 QRSD: 98 T: 78 QT: 329 QTc: 377 Interpretive Statements SINUS RHYTHM WITH SINUS ARRHYTHMIA LEFT VENTRICULAR HYPERTROPHY WITH ST-T CHANGE CANNOT R/O SEPTAL INFARCT, AGE INDETERMINATE ABNORMAL ECG Compared to ECG 05/27/2024 20:09:27 STEMI NO LONGER PRESENT Electronically Signed On 03-30-2025 07:36:00 CDT by Richard Christina D.O.
[2025-03-30] MEDS: ASPIRIN 81 MG CHEWABLE TABLET 324 MG PO (01:26)
--- OUTSIDE RECORDS SUMMARY | 2025-03-30 01:34 | XMS_ITS | Encounter Summary ---
Author Organization [facility] Healthcare Address [address] [place] [address] Care Team Providers Care Instrumentation And Control Technician Name Role Phone Tam Parker MD Primary Care Prov ider Encounter Details Date Type Department Care Team (Late st Contact Info) Description 05/29/2024 Orders Only [facility] [place] Health Information Management [address] [place] [id number] Scanning, Provider Social History Tobacco Use Types Packs/Day Years Used Date Smoking Tobacco: Never Assessed Sex and Gender Information Value Date Recorded Sex Assigned at Not on file Legal Sex Male 2:34 AM BOLT CUTTER Gender Identity Not on file Sexual Orientation [...] on filedocumented in this encounter Care Teams Instrumentation And Control Technician Relationship Specialty Start Date End Date Tam Parker MD [address] [place] [address] PCP - General 05/22/12 documented as of this encounter
--- OUTSIDE RECORDS SUMMARY | 2025-03-30 01:34 | XMS_ITS | Encounter Summary ---
Author Organization [facility] Healthcare Address [address] [place] [address] Care Team Providers Care Hot Knife Foxing Cutter Name Role Phone Tam Parker MD Primary Care Prov ider Encounter Details Date Type Department Care Team (Late st Contact Info) Description 05/27/2024 Orders Only [facility] [place] Information Management [address] [place] [address] Scanning, Provider Social History Tobacco Use Types Packs/Day Years Used Date Smoking Tobacco: Never Assessed Sex and Gender Information Value Date Recorded Sex Assigned at Not on file Legal Sex Male 2:34 AM 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
--- OUTSIDE RECORDS SUMMARY | 2025-03-30 01:34 | XMS_ITS | Clinical Summary ---
Author Organization [facility] [address] Address [address] [place] [address] Care Team Providers Care Technology Applications Engineer Name Role Phone Tam Parker MD Primary [...] Type Department Care Team Description 03/29/2025 Telephone [facility] Medical [facility] Cardiology [address] [place] [address] Lauren Paez MD 03/04/2025 Telephone [facility] Cardiology [address] [place] [address] Lauren Paez MD 02/25/2025 Telephone [facility] Cardiology [address] [place] [address] Lauren Paez MD from Last 3 Months [...] on file 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 Gender Identity Not on file Sexual Orientation Not on file Obstetrics History Last Filed Vital Signs Vital Sign Reading Time Taken Comments Blood Pressure 118/76 10/01/2024 12:24 PM RETOUCHER Pulse 81 10/01/2024 12:24 PM RETOUCHER Temperature - - Respiratory Rate - - Oxygen Saturation 98% 10/01/2024 12:24 PM RETOUCHER Inhaled Oxygen Concentration - - Weight 96.4 kg (212 lb 9.6 oz) 10/01/2024 12:24 PM RETOUCHER Height 175.3 cm (5' 9) 10/01/2024 12:24 PM RETOUCHER Body Mass Index 31.4 10/01/2024 12:24 PM RETOUCHER Plan of Treatment Health Maintenance Due Date [...] LIPID PANEL Routine 10/01/2024 12:4 4 PM RETOUCHER Hyperlipidemia associated with type 2 diabetes mellitus (HCC) from Last 3 Months or Most Recently Relevant to Health Maintenance Results * POCT lipid panel (10/01/2024 12:44 PM RETOUCHER) Cholesterol, POC 112 mg/dL HDL, POC <15 mg/dL Triglycerides, POC 547 mg/dL LDL Cholesterol POC N/A mg/dL Chol/HDL Ratio, POC N/A Non-HDL Cholesterol, POC N/A mg/dL Cholesterol Total, POC 112 mg/dL Capillary blood 10/01/2024 1 2:44 PM RETOUCHER us Lauren Paez MD POINT OF CARE TEST O RDERABLES Final Result from Last 3 Months or Most Recently Relevant to Health Maintenance Care Teams Technology Applications Engineer Relationship Specialty Start Date End Date Tam Parker MD [address] [place] [address] PCP - General 05/22/12
--- OUTSIDE RECORDS SUMMARY | 2025-03-30 01:34 | XMS_ITS | Encounter Summary ---
Author Organization [facility] Healthcare Address [address] [place] [address] Care Team Providers Care Administrative Assistant Receptionist Name Role Phone Tam Parker MD Primary Care Prov ider Encounter Details Date Type Department Care Team (Late st Contact Info) Description 03/29/2025 Telephone [facility] Medical Group Cardiology [address] [facility] [address] [place] [address] Lauren Paez MD [address] [place] [id number] Social History Tobacco Use Types Packs/Day Years Used Date Smoking Tobacco: Never Sex and Gender Information Value Date Recorded Sex Assigned at Not on file 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
--- NOTE | 2025-03-30 01:39 | ED_ITS ---
HPI - Recheck/Abnormal Lab/Rx General Chief Complaint: Recheck/Abnormal Lab/Rx Stated Complaint: htn Time Seen by Provider: 03/30/25 01:10 History of Present Illness HPI narrative: 59-year-old male with a history of myocardial infarction with a stent in his LAD last year. Patient presents to the emergency department with elevated blood pressure readings as well as some left-sided chest and arm discomfort. Patient states he feels like he over exerts himself all working throughout the last few days but states that his symptoms mimic the last time he had a heart attack and wants to be evaluated. He took his blood pressure at home and was high in the 200 range and he was very concerned but this came down without any interventions. He takes baby aspirin and Plavix daily in addition to a statin and diabetic medications. No insulin use. Denies any traumatic injuries. No difficulty in breathing. States his chest discomfort is very minor at this time and does not want any additional medications for pain control. No traumatic injuries, fever, chills, back pain, abdominal pain, nauseousness or vomiting. Follows regularly with cardiology regarding his coronary disease. Related Data Allergies Allergy/AdvReac Type Severity Reaction Status Date / Time No Known Allergies Allergy Verified 09/26/24 08:55 Review of Systems 2 Review of Systems: As reviewed above in HPI [facility] Past Medical History Medical History History of ST elevation myocardial infarction (STEMI) (05/2024) Family History Family History Father Acute myocardial infarction Lung cancer High cholesterol Mother Diabetes mellitus Heart abnormality Social History Social History Smoking status: Never smoker Second hand tobacco smoke exposure: Yes Alcohol intake: never Substance use: never Do You Feel Safe in your Home?: Yes Lack of Transportation: No Lack of Food: Never True Current Housing: I Have Housing Concerned About Future Housing: No Difficulty Paying Gas/Electric Bills: No Difficulty Paying for Meds: No 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ion: Bachelor's Degree Difficulty w/ Childcare or Family Care: No Spiritual care concerns: No Exam 2 Narrative: GENERAL: [Well-appearing, well-nourished, and in no acute distress.] HEAD: [Normocephalic, atraumatic.] EYES: [PERRLA and EOMI.] ENT: Nares clear, no rhinorrhea or epistaxis. Mucous membranes moist. NECK: Supple. CHEST: [Clear to auscultation. No respiratory distress.] HEART: [Regular rate and rhythm]. No murmur heard. [Normal peripheral pulses.] ABDOMEN: [Soft, nondistended], [nontender], [No rigidity or guarding] EXTREMITIES: Normal range of motion. [No edema.] SKIN: Warm, dry, no rash. NEURO: [No focal deficits]. Alert and oriented [x3.] PSYCH: [Normal mood and affect.] Course Vital Signs Vital signs: Vital Signs Temperature 36.8 C 03/30/25 00:54 Pulse Rate 79 03/30/25 00:54 Respiratory Rate 17 03/30/25 00:54 Blood Pressure 136/94 H 03/30/25 00:54 Pulse Oximetry 100 03/30/25 00:54 Oxygen Delivery Room Air 03/30/25 00:54 Temperature 36.8 C 03/30/25 00:54 Pulse Rate 73 03/30/25 04:15 Respiratory Rate 17 03/30/25 04:15 Blood Pressure 163/78 H 03/30/25 01:17 Pulse Oximetry 97 03/30/25 04:15 Oxygen Delivery Room Air 03/30/25 00:54 MDM - Recheck/Abnormal Lab/Rx MDM Narrative Medical decision making narrative: 59-year-old male with a history of myocardial infarction with a stent in his LAD last year. Patient presents to the emergency department with elevated blood pressure readings as well as some left-sided chest and arm discomfort. Patient states he feels like he over exerts himself all working throughout the last few days but states that his symptoms mimic the last time he had a heart attack and wants to be evaluated. He took his blood pressure at home and was high in the 200 range and he was very concerned but this came down without any interventions. He takes baby aspirin and Plavix daily in addition to a statin and diabetic medications. No insulin use. Denies any traumatic injuries. No difficulty in breathing. States his chest discomfort is very minor at this time and does not want any additional medications for pain control. No traumatic injuries, fever, chills, back pain, abdominal pain, nauseousness or vomiting. Follows regularly with cardiology regarding his coronary disease. Patient has an unremarkable physical examination was strong symmetric pulses, clear breath sounds throughout, no murmurs on auscultation. Vital signs show some minor hypertension but no other significant derangements. Symptoms could be multifactorial including potential anxiety related or hypertension related. He has have coronary disease history and high risk for recurrence of coronary disease or stent thrombosis but overall clinical exam is reassuring. EKG obtained shows persistent ST elevation in lead V2 but much improved from his STEMI in the anterior leads from last year and potentially has residual but there appears to be no reciprocal depressions or continual ST elevations which is reassuring. Troponin levels, delta troponin, EKG and basic laboratory studies obtained. He was placed on front desk monitor and pulse oximetry. Patient provided aspirin 325 mg and declined any other analgesia medications at this juncture. Patient's laboratory studies are reassuring. No leukocytosis or significant anemia worsened baseline. Normal platelet count. Coagulation panel is normal. Electrolytes are normal. Creatinine normal. Glucose unremarkable. Negative troponin. Negative delta troponin. Normal lipase. Chest x-ray per my interpretation shows no signs of consolidation, pneumothorax or cardiomegaly. Patient remains hemodynamically stable and on telemetry during re-evaluations. He has no ongoing chest pain or chest discomfort. His 2nd EKG is the same as his initial without any diffuse ST segment elevations or new inversions. No ectopy. Patient is asymptomatic at this time and has negative troponins. He is higher risk for coronary disease issues or stent issues but given his lack of symptoms we discussed next steps including admission for observation and Cardiology evaluation, but patient tells me he has a outpatient cardiology appointment in 2 days time on Tuesday and would prefer to go home and follow-up with them given the unremarkable labs today. I was comfortable with this plan given his close follow-up and reassuring findings here today but we did discuss strict return precautions including recurrence of any chest discomfort, shortness of breath, anginal equivalents or any other issues and he should seek repeat evaluation in the ER and otherwise to follow-up with his stitcher standard machine 1st thing Tuesday morning during his appointment for further risk stratification and outpatient testing as needed. Patient and family were comfortable with the plan and safe for discharge. Medical Records Attestation: I reviewed the patient's medical records. Lab Data Attestation: I reviewed the patient's lab results. 03/30/25 01:33 03/30/25 01:33 Labs: Lab Results 03/30/25 03/30/25 Range/Units 01:33 04:01 WBC 7.7 (4.5-10.0) K/mm3 RBC 4.24 L (4.6-6.20) M/mm3 Hgb 12.9 L (14.0-18.0) g/dL Hct 38.3 L (42.0-52.0) % MCV 90.3 (80-100) fl MCH 30.4 (26-34) pg MCHC 33.7 (32-36) g/dl RDW 12.9 (11.5-14.5) % Plt Count 328 (150-375) k/mm3 MPV 8.7 (7.4-10.4) fl Immature Gran % (Auto) 0.1 (0-0.5) % Neut % (Auto) 52.8 (45.5-73.1) % Lymph % (Auto) 38.7 (18.3-44.2) % [place] % (Auto) 6.0 (2.6-8.5) % Eos % (Auto) 2.1 (0-4.4) % Baso % (Auto) 0.3 (0.2-1.2) % Lymph # (Auto) 2.99 (0.9-3.2) K/mm3 [place] # (Auto) 0.5 (0.1-0.6) K/mm3 Eos # (Auto) 0.2 (0-0.3) K/mm3 Baso # (Auto) 0.0 (0.0-0.1) K/mm3 Abs Immat Gran (auto) 0.01 (0.00-0.031) K/mm3 Absolute Neuts (auto) 4.1 (1.3-6.7) K/mm3 Absolute Nucleated RBC 0.000 (0.0-0.012) K/mm3 Nucleated RBC % 0.0 (0.0-0.2) % PT 14.5 (11.1-14.7) Seconds INR 1.1 APTT 27.7 (22.3-36.8) Seconds Sodium 135 L (137-145) mmol/L Potassium 4.8 (3.4-5.0) mmol/L Chloride 101 (98-107) mmol/L Carbon Dioxide 28 (22-30) mmol/L Anion Gap 6 (4-12) mmol/L BUN 19 (9-20) mg/dL Creatinine 0.59 L (0.7-1.3) mg/dL Estim Creat Clear Calc 127 ml/min Estimated GFR > 60 (59 - ) Glucose 156 H (65-110) mg/dL Calcium 9.7 (8.4-10.2) mg/dL Total Bilirubin 0.8 (0.2-1.3) mg/dL AST 40 (17-59) U/L ALT 42 (6-50) U/L Alkaline Phosphatase 46 (38-126) U/L Troponin I < 0.012 < 0.012 (0.000-0.034) ng/mL Total Protein 7.7 (6.3-8.2) g/dL Albumin 4.5 (3.5-5.1) g/dL Lipase 54 (23-300) U/L Imaging Data Attestation: I personally reviewed and interpreted this imaging study as follows: My impression: No pneumothorax, pneumonia or consolidations. No cardiomegaly Discharge Plan Discharge Clinical Impression: [place] (myocardial infarction), Chest pain Patient Disposition: Home Condition: Stable Instructions: Antibiotic Form, Angina (ED), Chest Pain (DC) Additional Instructions: Laboratory studies show no signs of any ongoing cardiac damage. EKG appears much improved from the previous heart attack and likely has some residual chronic changes. If you have any recurrent chest pain or new symptoms such as shortness of breath, exertional symptoms, neck pain, syncope or any other concerns please return to the emergency department for repeat evaluation otherwise follow-up with your stitcher standard machine on Tuesday morning and keep your appointment. Patient Language: Lao Prescriptions: No Action atorvastatin 40 mg Tablet 40 mg PO DAILY Qty: 90 2RF carvedilol [Coreg] 6.25 mg Tablet 6.25 mg PO Q12HR Qty: 180 2RF clopidogrel 75 mg Tablet 75 mg PO QAM Qty: 90 2RF aspirin 81 mg Tablet,Delayed Release (Dr/Ec) 81 mg PO QAM Qty: 30 5RF losartan 25 mg Tablet 25 mg PO DAILY Qty: 90 2RF (DME) blood-glucose meter [OneTouch Verio Flex meter] [facility] Qty: 1 0RF Rx Instructions: May substitute to in-stock meter and/or covered by insurance. Use As Directed (DME) OneTouch Verio test strips Strip Qty: 1 0RF Rx Instructions: May substitute to in-stock and/or covered by insurance strips. Use As Directed (DME) lancets [OneTouch Delica Plus Lancet] 30 gauge [facility] Qty: 1 0RF Rx Instructions: May substitute to in-stock and/or covered by insurance lancets. Use As Directed metformin 500 mg tablet extended release 24 hr 1,000 mg PO DAILY Qty: 60 8RF glimepiride 1 mg tablet 1 mg PO QAM Qty: 90 2RF Rx Instructions: administer with breakfast Follow-up/Referrals: Tam Parker MD [Primary Care Provider] - Time of Disposition: 04:53
[2025-03-30 01:45] LABS: Hematocrit 38.3 % (42.0-52.0); Hemoglobin 12.9 g/dL (14.0-18.0); Immature Granulocyte Percent A 0.1 % (0-0.5); Lymphocytes Absolute Auto 2.99 K/mm3 (0.9-3.2); Mean Corpuscular HGB Conc 33.7 g/dl (32-36); Mean Corpuscular Hemoglobin 30.4 pg (26-34); Mean Corpuscular Volume 90.3 fl (80-100); Nucleated Red Blood Cells Absolute Auto 0.000 K/mm3 (0.0-0.012); Nucleated Red Blood Cells Perc 0.0 % (0.0-0.2); Platelet Count Result 328 k/mm3 (150-375); Red Blood Count 4.24 M/mm3 (4.6-6.20); White Blood Count 7.7 K/mm3 (4.5-10.0)
[2025-03-30 01:49] LABS: INR 1.1; Prothrombin Time 14.5 Seconds (11.1-14.7)
[2025-03-30 01:50] LABS: Partial Thromboplastin Time 27.7 Seconds (22.3-36.8)
[2025-03-30 01:54] LABS: Alanine Aminotransferase 42 U/L (6-50); Albumin Level 4.5 g/dL (3.5-5.1); Alkaline Phosphatase 46 U/L (38-126); Anion Gap 6 mmol/L (4-12); Aspartate Amino Transferase 40 U/L (17-59); Bilirubin,Total 0.8 mg/dL (0.2-1.3); Blood Urea Nitrogen 19 mg/dL (9-20); Calcium 9.7 mg/dL (8.4-10.2); Carbon Dioxide 28 mmol/L (22-30); Chloride 101 mmol/L (98-107); Estimated CRCL calculation 127 ml/min; Estimated Glomerular Filt Rate > 60; Glucose 156 mg/dL (65-110); Lipase 54 U/L (23-300); Potassium 4.8 mmol/L (3.4-5.0); Sodium 135 mmol/L (137-145); Total Protein 7.7 g/dL (6.3-8.2)
[2025-03-30 02:04] LABS: Troponin I < 0.012 ng/mL (0.000-0.034)
--- NOTE | 2025-03-30 04:00 | ECG_ITS ---
Test Date: 2025-03-30 03:57:12 Measurements Intervals [place] Rate: 68 P: 40 IA: 159 QRS: -11 QRSD: 93 T: 53 QT: 330 QTc: 353 Interpretive Statements SINUS RHYTHM LEFT VENTRICULAR HYPERTROPHY WITH ST-T CHANGE ANTEROSEPTAL MYOCARDIAL INFARCTION , AGE INDETERMINATE ABNORMAL ECG Compared to ECG 03/30/2025 01:14:00 NO SIGNIFICANT CHANGE Electronically Signed On 03-30-2025 07:40:52 CDT by Richard Christina D.O.
[2025-03-30 04:36] LABS: Troponin I < 0.012 ng/mL (0.000-0.034)
== END 2025-03-30 05:13 | disposition home or self-care (01) ==
PROVIDERS: Emergency Provider Student in an Organized Health Care Education/Training Program; PCP Family Medicine Adolescent Medicine
DX: R07.9 Chest pain, unspecified (principal); I25.2 Old myocardial infarction; E11.9 Type 2 diabetes mellitus without complications; Z79.82 Long term (current) use of aspirin; Z79.02 Long term (current) use of antithrombotics/antiplatelets
CPT/HCPCS: 36415; 71046; 80053; 83690; 84484; 85025; 85610; 85730; 93005; 99284; A9270